=== PATIENT | male | born 1980 | race Caucasian/White ===

== ENCOUNTER 2021-11-20 11:26 | Emergency (ER) | payer BC, SELFPAY ==
--- NOTE | ~2021-11-20 | US_ITS ---
EXAMINATION:US venous doppler LE LT INDICATION:Left calf pain TECHNIQUE: Multiple grayscale, color flow and Doppler images of the left lower extremity deep venous systems were obtained and reviewed. COMPARISON:No prior studies for comparison. FINDINGS: The common femoral, superficial femoral and popliteal veins demonstrate normal respiratory variation, augmentation and compressibility. Color flow is also seen within the posterior tibial, pe roneal, greater saphenous and profunda veins. IMPRESSION: 1: No lower extremity deep venous thrombosis. Reviewed, dictated and finalized at location A.
[2021-11-20 11:28] VITALS: BP 136/116; PULSE 74; RESP 14; TEMP 36.7; O2SAT 97
[2021-11-20 11:32] VITALS: RESP 18
[2021-11-20 14:13] LABS: Glucose Point of Care 90 mg/dl (65-105)
--- NOTE | 2021-11-20 15:17 | ED.LOWEXIN ---
HPI - Extremity Injury (Lower) General Chief Complaint: Extremity Injury, Lower Stated Complaint: L calf pain Time Seen by Provider: 11/20/21 12:34 History of Present Illness HPI Narrative: Patient is a 41-year-old male who presents ER with left calf pain. Began 3 days ago. Worsened over the weekend. No known injury. Cramping. Started having tingling in his foot today. Yesterday he drove to [place] to go swimming and then drove back. This was a 5-hour round trip. No chest pain or chest pressure or difficulty breathing. No hemoptysis. No history of blood clots. Denies fevers or chills or sweats. No low back pain or radiating pain from his back. He does have history of sciatica and this is different. He has tried some ibuprofen without improvement. Related Data Allergies Allergy/AdvReac Type Severity Reaction Status Date / Time No Known Allergies Allergy Unverified 11/20/21 15:13 Review of Systems Review of Systems: All systems reviewed & are unremarkable except as noted in HPI and below Constitutional: Constitutional: Denies chills and Denies fever(s) Cardiovascular: Cardiovascular: Denies chest pain, Denies rapid heart rate and Denies radiating jaw, neck or arm pain Respiratory: Respiratory: Denies cough and Denies dyspnea Gastrointestinal: Gastrointestinal: Denies abdominal pain, Denies nausea and Denies vomiting Musculoskeletal: Musculoskeletal: Denies arthralgias, Denies joint swelling and Reports muscle cramps Neurologic: Denies focal weakness and Denies numbness Comments: Leg tingling PMFSH Past Medical History Medical History (Updated 11/20/21 @ 22:04 by Lavon Mascorro MD) Healthy adult male Surgical History Surgical History (Updated 11/20/21 @ 22:04 by Lavon Mascorro MD) No history of previous surgery Exam Narrative: GENERAL: Well-appearing, well-nourished, and in no acute distress. HEAD: Normocephalic, atraumatic. CHEST: Clear to auscultation. No respiratory distress. HEART: Regular rate and rhythm. Normal peripheral pulses. ABDOMEN: Soft, nontender, nondistended. EXTREMITIES: Normal range of motion. No edema. Negative Homans' sign. SKIN: Warm, dry, no rash. NEURO: No focal deficits. Alert and oriented x3. PSYCH: Normal mood and affect. Course Course Emergency Course: No DVT. Will recommend anti-inflammatories muscle relaxers. Needs a follow-up with PCP if symptoms not improving. Patient verbalized understanding. Vital Signs Vital signs: Vital Signs Temperature 98.1 F 11/20/21 11:28 Pulse Rate 74 11/20/21 11:28 Respiratory Rate 14 11/20/21 11:28 Blood Pressure 136/116 H 11/20/21 11:28 Pulse Oximetry 97 11/20/21 11:28 Oxygen Delivery Room Air 11/20/21 11:28 Temperature 98.1 F 11/20/21 11:28 Pulse Rate 74 11/20/21 11:28 Respiratory Rate 18 11/20/21 11:32 Blood Pressure 136/116 H 11/20/21 11:28 Pulse Oximetry 97 11/20/21 11:28 Oxygen Delivery Room Air 11/20/21 11:28 MDM - Extremity Injury (Lower) Lab Data Labs: Lab Results 11/20/21 Range/Units 14:10 POC Capillary Glucose 90 (65-105) mg/dl Imaging Data Radiologist's impression: ITS Impressions Venous Doppler Study 11/20/21 13:57 IMPRESSION: 1: No lower extremity deep venous thrombosis. Discharge Plan Discharge Clinical Impression: Strain of calf muscle Patient Disposition: Home, Self-Care Condition: Stable Instructions: Muscle Strain (ED), P.R.I.C.E. Treatment (ED) Additional Instructions: Return to the ER if you have worsening pain, you have swelling of your leg, you have chest pain or shortness of breath, you have focal weakness in your limb. Take anti-inflammatories and muscle relaxers and follow-up with your PCP. Should your symptoms persist and may require additional imaging or studies. Prescriptions: New naproxen 500 mg tablet 500 mg PO BID Qty: 14 0RF cyclobenzaprine 10 mg tablet
== END 2021-11-20 15:40 | disposition home or self-care (01) ==
PROVIDERS: Emergency Provider Emergency Medicine; PCP Family Medicine Adolescent Medicine
DX: S86.912A Strain of unspecified muscle(s) and tendon(s) at lower leg level, left leg, initial encounter (principal); X58.XXXA Exposure to other specified factors, initial encounter
CPT/HCPCS: 82948; 93971; 99284